=== PATIENT | male | born 1965 | race Caucasian/White ===

== ENCOUNTER 2017-06-25 15:12 | Emergency (ER) | payer OTHER ==
[~2017-06-25] VITALS: Ht 162.6 cm; Wt 65.8 kg
[2017-06-25] MEDS ORDERED: PAXIL PO (15:27)
[2017-06-25] MEDS ORDERED: OMEP40CA37 PO (15:27)
[2017-06-25] MEDS ORDERED: OLAN20TA3 PO (15:27)
[2017-06-25 15:42] LABS: *BILIRUBIN,URIN NEGATIVE (NEGATIVE); *BLOOD, URINE NEGATIVE (NEGATIVE); *CLARITY,URINE CLEAR (CLEAR); *COLOR,URINE YELLOW (YELLOW); *KETONES,URINE NEGATIVE (NEGATIVE); *PROTEIN,URINE NEGATIVE (NEGATIVE); *UROBILINOGEN,URINE 0.2 E.U./dl (NORMAL); LEUKOCYTE ESTERASE ,URINE NEGATIVE (NEGATIVE); NITRITE, URINE NEGATIVE (NEGATIVE); UGLUCOSE NEGATIVE (NEGATIVE)
[2017-06-25 15:47] LABS: BASOPHILS # (AUTO) 0.1 K/uL (0.0-8.0); BASOPHILS % (AUTO) 1.1 % (0.0-2.0); EOSINOPHILS # (AUTO) 0.1 K/uL (0.0-0.7); HEMATOCRIT 41.5 % (40-50); HEMOGLOBIN 14.2 G/DL (14.0-18.0); LYMPHOCYTES % (AUTO) 28.4 % (20.5-51.5); MEAN CORPUSCULAR HEMOGLOBIN 32.9 UUG (27.0-31.0); MEAN CORPUSCULAR HGB CONC 34 g/dL (32.0-37.0); MEAN CORPUSCULAR VOLUME 96.3 FL (82.0-92.0); MONOCYTES # (AUTO) 0.5 K/UL (0.1-1.30); MONOCYTES % (AUTO) 7.2 % (0.0-11.0); NEUTROPHILS # (AUTO) 4.4 K/UL (1.8-8.9); NEUTROPHILS % (AUTO) 61.3 % (38.5-71.5); PLATELET COUNT (AUTO) 264 K/UL (150-450); RED BLOOD CELL COUNT(AUTO) 4.31 MIL/UL (4.7-6.1); WHITE BLOOD COUNT (AUTO) 7.1 K/UL (4.0-11.2)
[2017-06-25 15:47] LABS: BACTERIA,URINE NONE SEEN /HPF (NONE SEEN); RBC,URINE NONE SEEN /HPF (0-3); WBC,URINE 0-3 /HPF (0-3)
[2017-06-25 15:48] LABS: SQUAMOUS EPITHELIAL CELL,UR FEW /HPF (NONE SEEN)
[2017-06-25 15:54] LABS: CARBON DIOXIDE 29 mmol/L (21-32); CHLORIDE 101 mmol/L (98-107); CREATININE 1.1 mg/dL (0.6-1.3); GLUCOSE 131 mg/dL (74-106); POTASSIUM 3.4 mmol/L (3.5-5.1); UREA NITROGEN, BLOOD 16 mg/dL (7-18)
[2017-06-25 15:56] LABS: *AMPHETAMINE, URINE POSITIVE (NEGATIVE); *BARBITURATE, URINE NEGATIVE (NEGATIVE); *CANNABINOID, URINE POSITIVE (NEGATIVE); *COCCAINE, URINE NEGATIVE (NEGATIVE); *OPIATE, URINE NEGATIVE (NEGATIVE); *PHENCYCLIDINE SCREEN,URINE NEGATIVE (NEGATIVE)
[2017-06-25 16:07] LABS: ETHANOL < 3 MG/DL (0-0)
[2017-06-25 16:10] LABS: ALANINE AMINOTRANSFERASE 39 U/L (16-63); ALKALINE PHOSPHATASE 60 U/L (50-136); ASPARTATE AMINOTRANSFERASE 17 U/L (15-37); BILIRUBIN,DIRECT 0.1 mg/dL (0.0-0.2); BILIRUBIN,TOTAL 0.3 mg/dL (0.2-1.0)
[2017-06-25 16:11] LABS: THYROID STIMULATING HORMONE 1.896 mIU/mL (0.358-3.740)
--- NOTE | 2017-06-25 16:12 | NUR ---
Pt resting with NAD noted. Called Lincoln Ellis for psych eval, eat 30 mins.
--- NOTE | 2017-06-25 16:32 | NUR ---
Per Dr. Cooper patient is medically clear.
--- NOTE | 2017-06-25 16:35 | NUR ---
Lincoln Ellis here for psych eval.
--- NOTE | 2017-06-25 17:52 | NUR ---
Pt eating dinner with NAD noted, awaiting call back from [facility].
--- NOTE | 2017-06-25 18:25 | NUR ---
Received telephone call from New from [facility] who stated they have accepted the pt (voluntary admission ), Dr. Rodrigez accepting. Per New pt may be transported by taxi as he is a voluntary admission and report to be called to [phone].
--- NOTE | 2017-06-25 18:30 | NUR ---
SBAR report given to Elli at [facility] via telephone ).
--- NOTE | 2017-06-25 18:34 | NUR ---
Received telephone call from New who stated Dr. Gutierrez is the accepting physician.
--- NOTE | 2017-06-25 18:46 | NUR ---
Patient discharged in stable conditon. Written and verbal after care instructions given. Patient verbalizes understanding of instructions. Taxi (with voucher) provided for transport to [id number] [facility]. [id number].
== END 2017-06-25 18:50 | disposition home or self-care (01) ==
LOC: ER 15:12
DX: F31.9 Bipolar disorder, unspecified (principal); K21.9 Gastro-esophageal reflux disease without esophagitis; F15.10 Other stimulant abuse, uncomplicated; Z59.0 Homelessness
CPT/HCPCS: 36415; 71010; 80307; 84443; 85025; 93005; A4663; G0480

== ENCOUNTER 2017-10-22 07:55 | Emergency (ER) | payer OTHER ==
[~2017-10-22] VITALS: Ht 162.6 cm; Wt 63.5 kg
[~2017-10-22 07:55] MED LIST: OLAN20TA3 PO; OMEP40CA37 PO; PAXIL PO
[2017-10-22] MEDS ORDERED: MAG HYDROX/AL HYDROX/SIMETH 30 ML LIQUID UDC PO ONE (08:15)
[2017-10-22] MEDS ORDERED: DICYCLOMINE HCL 10 MG/5 ML UDC LIQ PO ONE (08:15)
[2017-10-22] MEDS ORDERED: DICYCLOMINE HCL 10 MG/5 ML UDC LIQ ONE (08:19)
[2017-10-22] MEDS ORDERED: MAG HYDROX/AL HYDROX/SIMETH 30 ML LIQUID UDC ONE (08:19)
--- NOTE | 2017-10-22 08:21 | NUR ---
mse completed, pt d/c'd home,aci rx x4 given. pt ambulated w/o diff,took all belongings.
[2017-10-22 08:22] VITALS: BP 141/89
== END 2017-10-22 08:22 | disposition home or self-care (01) ==
LOC: ER 07:56
DX: Z76.0 Encounter for issue of repeat prescription (principal); K21.9 Gastro-esophageal reflux disease without esophagitis; Z79.899 Other long term (current) drug therapy; Z59.0 Homelessness
CPT/HCPCS: A4663

== ENCOUNTER 2017-11-09 18:07 | Emergency (ER) | payer OTHER ==
[~2017-11-09] VITALS: Ht 162.6 cm; Wt 63.5 kg
--- NOTE | 2017-11-09 19:06 | NUR ---
Report given to Brennon LAZCANO, I relinquish care of pt at this time.
[2017-11-09 19:09] LABS: *BILIRUBIN,URIN NEGATIVE (NEGATIVE); *BLOOD, URINE NEGATIVE (NEGATIVE); *CLARITY,URINE CLEAR (CLEAR); *COLOR,URINE YELLOW (YELLOW); *KETONES,URINE NEGATIVE (NEGATIVE); *PROTEIN,URINE NEGATIVE (NEGATIVE); *UROBILINOGEN,URINE 0.2 E.U./dl (NORMAL); BASOPHILS # (AUTO) 0.1 K/uL (0.0-8.0); BASOPHILS % (AUTO) 0.6 % (0.0-2.0); EOSINOPHILS # (AUTO) 0.2 K/uL (0.0-0.7); EOSINOPHILS % (AUTO) 2.1 % (0.0-7.0); HEMATOCRIT 36.6 % (36.7-47.1); HEMOGLOBIN 12.8 g/dL (12.5-16.3); LEUKOCYTE ESTERASE ,URINE NEGATIVE (NEGATIVE); LYMPHOCYTES # (AUTO) 2.4 K/uL (20.0-40.0); MEAN CORPUSCULAR HEMOGLOBIN 33.8 uug (23.8-33.4); MEAN CORPUSCULAR HGB CONC 35 g/dL (32.5-36.3); MEAN CORPUSCULAR VOLUME 96.8 fL (73.0-96.2); MONOCYTES # (AUTO) 0.7 K/uL (2.0-10.0); MONOCYTES % (AUTO) 8.1 % (0.0-11.0); NEUTROPHILS % (AUTO) 60.2 % (38.5-71.5); NITRITE, URINE NEGATIVE (NEGATIVE); PH,URINE 6.5 (5.0-8.0); PLATELET COUNT (AUTO) 227 K/uL (152-348); RED BLOOD CELL COUNT(AUTO) 3.79 MIL/uL (4.06-5.63); UGLUCOSE NEGATIVE (NEGATIVE); WHITE BLOOD COUNT (AUTO) 8.3 K/uL (3.6-10.2)
[2017-11-09 19:21] LABS: ETHANOL < 3 MG/DL (0-0)
[2017-11-09 19:30] LABS: BACTERIA,URINE NONE SEEN /HPF (NONE SEEN); RBC,URINE 0-3 /HPF (0-3); SQUAMOUS EPITHELIAL CELL,UR NONE SEEN /HPF (NONE SEEN); WBC,URINE 0-3 /HPF (0-3)
--- NOTE | 2017-11-09 19:35 | NUR ---
CALLED JANY LEVY LCSW, FOR PSYCH EVAL. ETA 1 HR
[2017-11-09 19:38] LABS: *AMPHETAMINE, URINE NEGATIVE (NEGATIVE); *BARBITURATE, URINE NEGATIVE (NEGATIVE); *CANNABINOID, URINE POSITIVE (NEGATIVE); *COCCAINE, URINE NEGATIVE (NEGATIVE); *OPIATE, URINE NEGATIVE (NEGATIVE); *PHENCYCLIDINE SCREEN,URINE NEGATIVE (NEGATIVE)
[2017-11-09] MEDS ORDERED: LORAZEPAM 0.5 MG TABLET PO ONE (19:45)
[2017-11-09] MEDS ORDERED: LORAZEPAM 1 MG TABLET ONE (19:53)
[2017-11-09 19:57] LABS: CARBON DIOXIDE 26 mmol/L (21-32); CHLORIDE 104 mmol/L (98-107); GLUCOSE 93 mg/dL (74-106); POTASSIUM 3.7 mmol/L (3.5-5.1); UREA NITROGEN, BLOOD 11 mg/dL (7-18)
[2017-11-09 20:02] LABS: ALANINE AMINOTRANSFERASE 50 U/L (16-63); ALKALINE PHOSPHATASE 58 U/L (50-136); ASPARTATE AMINOTRANSFERASE 18 U/L (15-37); BILIRUBIN,DIRECT 0.1 mg/dL (0.0-0.2); BILIRUBIN,TOTAL 0.2 mg/dL (0.2-1.0)
[2017-11-09 20:03] LABS: ACETAMINOPHEN < 2.0 ug/mL (10-30)
--- NOTE | 2017-11-09 21:00 | NUR ---
JANY LEVY AT BEDSIDE FOR EVAL.
--- NOTE | 2017-11-10 00:38 | NUR ---
RECEIVED CALL FROM JOSE AT [facility]. ACCORDING TO JOSE, PATIENT IS NOT ON HOLD AND DOES NOT MEET CRITERIA FOR ADMISSION. DR. COLUNGA NOTIFIED.
--- NOTE | 2017-11-10 03:00 | NUR ---
PT REFUSES TO BE DISCHARGED. PT STATES HE WANTS TO HURT HIMSELF BY CUTTING HIS WRISTS. DR. COLUNGA MADE AWARE. WILL CALL JANY LEVY FOR ANOTHER PSYCH EVAL.
--- NOTE | 2017-11-10 06:49 | NUR ---
CALLED JANY LEVY LCSW, FOR ANOTHER PSYCH EVAL. ETA - 1.5 HRS
--- NOTE | 2017-11-10 07:18 | NUR ---
GAVE REPORT TO ZEHRA LAZCANO
--- NOTE | 2017-11-10 07:24 | NUR ---
PATIENT AMBULATED TO BATHROOM AND WAS ABLE TO VOID URINE. HE STATES HE WILL "SLASH HIS WRISTS" IF HE GETS DISCHARGED AND WANTS TO BE ADMITTED TO A FACILITY. [facility] WAS JUST INFORMED OF THIS VIA PHONE BY CYNDI LAZCANO. PATIENT IS TO BE ADMITTED TO [facility]. WE ARE MAKING ARRANGEMENTS FOR THIS TRANSFER NOW.
--- NOTE | 2017-11-10 07:24 | NUR ---
TALKED TO JANY LEVY. HE SAYS [facility] WILL ACCEPT THE PT BC PT EXPRESSED SUICIDAL IDEATION BY CUTTING WRISTS. HAVE TO FAX OVER THE PAPERWORK TO [phone].
--- NOTE | 2017-11-10 08:09 | NUR ---
I RECEIVED A CALL ROM [facility] IN [place] THAT DR FLORES WILL BE ACCEPTING THIS PATIENT AT THAT FACILITY. I WILL CALL AND GIVE REPORT. PATIENT IS RESTING COMFORTABLE IN ROOM 2.
--- NOTE | 2017-11-10 08:33 | NUR ---
REPORT GIVEN TO ALFONZO LAZCANO AT [facility] AT [phone]. I CALLED FOR TRANSPORTATION ALSO. PATIENT IS AWARE OF PENDING TRANSFER.
--- NOTE | 2017-11-10 09:21 | NUR ---
AWAITING AMBULANCE ARRIVAL. PATIENT IS AMBULATORY WITH STEADY GAIT. HE DRANK SOME COFFEE.
--- NOTE | 2017-11-10 09:30 | NUR ---
"[facility]" STAFF HERE TO TRANSPORT PATIENT TO FACILITY. PATIENT IS AWAKE AND ALERT WITH NO COMPLAINTS. HE REFUSED BREAKFAST BUT HAD COFFEE.
== END 2017-11-10 09:32 | disposition short-term general hospital (02) ==
LOC: ER 18:07
DX: F31.9 Bipolar disorder, unspecified (principal); K21.9 Gastro-esophageal reflux disease without esophagitis; Z59.0 Homelessness; Z79.899 Other long term (current) drug therapy
CPT/HCPCS: 36415; 80307; 85025; A4663; G0480; G0480-TC

== ENCOUNTER 2017-11-29 07:58 | Emergency (ER) | payer OTHER ==
[~2017-11-29] VITALS: Ht 162.6 cm; Wt 64.9 kg
--- NOTE | 2017-11-29 09:01 | NUR ---
PT PREVIOUSLY STATED HE WANTED TO WAIT IN THE WAITING ROOM, AND TO CALL HIM WHEN DOCTOR IS READY TO SEE HIM. PT NOT IN THE WAITING ROOM AT THIS TIME.
--- NOTE | 2017-11-29 09:23 | NUR ---
checked again pt not in the waiting room or outside.
--- NOTE | 2017-11-29 09:24 | NUR ---
PT STILL NOT IN WAITING ROOM.LWBS.
== END 2017-11-29 09:24 | disposition left against medical advice (07) ==
LOC: ER 07:58
DX: Z53.21 Procedure and treatment not carried out due to patient leaving prior to being seen by health care provider (principal)
CPT/HCPCS: A4663

== ENCOUNTER 2017-11-29 19:11 | Emergency (ER) | payer OTHER ==
--- NOTE | 2017-11-29 19:58 | NUR ---
CALLED FOR PT NO ANSWER
--- NOTE | 2017-11-29 20:30 | NUR ---
CALLED FOR PT NO ANSWER.
--- NOTE | 2017-11-29 21:00 | NUR ---
CALLED FOR PT NO ANSWER LWBT
== END 2017-11-29 21:00 | disposition left against medical advice (07) ==
LOC: ER 19:14
DX: Z53.21 Procedure and treatment not carried out due to patient leaving prior to being seen by health care provider (principal)

== ENCOUNTER 2017-12-06 13:52 | Emergency (ER) | payer OTHER ==
[~2017-12-06] VITALS: Ht 162.6 cm; Wt 64.9 kg
--- NOTE | 2017-12-06 15:27 | NUR ---
PT NOT IN WAITINX RM X 3.
[2017-12-06 15:48] LABS: BASOPHILS % (AUTO) 0.7 % (0.0-2.0); EOSINOPHILS # (AUTO) 0.1 K/uL (0.0-0.7); HEMATOCRIT 46.1 % (36.7-47.1); HEMOGLOBIN 16.2 g/dL (12.5-16.3); LYMPHOCYTES # (AUTO) 1.9 K/uL (20.0-40.0); MEAN CORPUSCULAR HEMOGLOBIN 34.2 uug (23.8-33.4); MEAN CORPUSCULAR HGB CONC 35 g/dL (32.5-36.3); MEAN CORPUSCULAR VOLUME 97.2 fL (73.0-96.2); MONOCYTES # (AUTO) 0.4 K/uL (2.0-10.0); MONOCYTES % (AUTO) 6.9 % (0.0-11.0); NEUTROPHILS # (AUTO) 3.9 K/uL (1.8-8.9); NEUTROPHILS % (AUTO) 61.4 % (38.5-71.5); PLATELET COUNT (AUTO) 222 K/uL (152-348); RED BLOOD CELL COUNT(AUTO) 4.74 MIL/uL (4.06-5.63); WHITE BLOOD COUNT (AUTO) 6.4 K/uL (3.6-10.2)
[2017-12-06 15:53] LABS: *BILIRUBIN,URIN NEGATIVE (NEGATIVE); *BLOOD, URINE NEGATIVE (NEGATIVE); *CLARITY,URINE CLEAR (CLEAR); *COLOR,URINE YELLOW (YELLOW); *KETONES,URINE NEGATIVE (NEGATIVE); *PROTEIN,URINE NEGATIVE (NEGATIVE); *UROBILINOGEN,URINE 0.2 E.U./dl (NORMAL); LEUKOCYTE ESTERASE ,URINE NEGATIVE (NEGATIVE); NITRITE, URINE NEGATIVE (NEGATIVE); UGLUCOSE NEGATIVE (NEGATIVE)
[2017-12-06 15:57] LABS: CARBON DIOXIDE 29 mmol/L (21-32); CHLORIDE 102 mmol/L (98-107); CREATININE 1.1 mg/dL (0.6-1.3); GLUCOSE 97 mg/dL (74-106); POTASSIUM 4.1 mmol/L (3.5-5.1); UREA NITROGEN, BLOOD 12 mg/dL (7-18)
[2017-12-06 16:04] LABS: WBC,URINE 0-3 /HPF (0-3)
[2017-12-06 16:07] LABS: *AMPHETAMINE, URINE NEGATIVE (NEGATIVE); *BARBITURATE, URINE NEGATIVE (NEGATIVE); *CANNABINOID, URINE POSITIVE (NEGATIVE); *COCCAINE, URINE NEGATIVE (NEGATIVE); *OPIATE, URINE NEGATIVE (NEGATIVE); *PHENCYCLIDINE SCREEN,URINE NEGATIVE (NEGATIVE)
[2017-12-06 16:07] LABS: ETHANOL < 3 MG/DL (0-0)
[2017-12-06 16:10] LABS: ALANINE AMINOTRANSFERASE 69 U/L (16-63); ALKALINE PHOSPHATASE 68 U/L (50-136); ASPARTATE AMINOTRANSFERASE 26 U/L (15-37); BILIRUBIN,DIRECT 0.1 mg/dL (0.0-0.2); BILIRUBIN,TOTAL 0.4 mg/dL (0.2-1.0); TOTAL PROTEIN, SERUM 8.2 g/dL (6.4-8.2)
[2017-12-06 16:13] LABS: ACETAMINOPHEN < 2.0 ug/mL (10-30)
--- NOTE | 2017-12-06 17:15 | NUR ---
Pt sitting in gurney and eating dinner, RADHA noted.
--- NOTE | 2017-12-06 18:00 | NUR ---
Pinky at bedside for psych eval.
--- NOTE | 2017-12-06 19:28 | NUR ---
Aminta Carbajal LCSW to call back for confirmation from [facility] prior to proceeding with transfer.
--- NOTE | 2017-12-06 19:30 | NUR ---
Pt lying in bed, no acute signs of distress.
--- NOTE | 2017-12-06 20:37 | NUR ---
Pt in room sleeping, no acute signs of distress.
--- NOTE | 2017-12-06 21:30 | NUR ---
Called Aminta Marie RN, states didn't receive call from receiving hospital yet.
--- NOTE | 2017-12-06 22:22 | NUR ---
Gave [place] [address] Hayward accepting psychiatrist. Patient to go to Room 616B.
--- NOTE | 2017-12-06 22:29 | NUR ---
Spoke with August Campos to arrange transportation of patient from [facility] to [facility]. States will call in 1 hour.
--- NOTE | 2017-12-06 22:32 | NUR ---
Andres from [facility] gave trip # [id number], ETA for ambulance in 1 hour to 1.5 hours.
--- NOTE | 2017-12-06 23:20 | NUR ---
August Johnson arrived to transport patient from [facility] to [facility]. Report and documentation given to EMT.
--- NOTE | 2017-12-06 23:29 | NUR ---
Patient out of ER via [facility]. To be transported to [facility].
== END 2017-12-06 23:31 | disposition short-term general hospital (02) ==
LOC: ER 13:54
DX: F31.9 Bipolar disorder, unspecified (principal); Z59.0 Homelessness
CPT/HCPCS: 36415; 80048; 80076; 80307; 81001; 85025; 99285; A4663; G0480 ×2; G0481

== ENCOUNTER 2021-04-11 10:47 | Inpatient (IN) | payer OTHER ==
[~2021-04-11] VITALS: Ht 165.1 cm; Wt 65.8 kg
[~2021-04-11 10:47] MED LIST changes: +OMEP40CA21 PO; -OMEP40CA37 PO
[2021-04-11] MEDS ORDERED: IV NORMAL SALINE 1000 ML BAG IV ONE (11:00)
[2021-04-11] MEDS ORDERED: MORPHINE SULFATE 4 MG/1 ML DISP.SYRIN IV ONE (11:00)
[2021-04-11 11:21] LABS: HEMATOCRIT 35.6 % (36.7-47.1); MEAN CORPUSCULAR VOLUME 96.9 fL (73.0-96.2); PLATELET COUNT (AUTO) 257 K/uL (152-348)
[2021-04-11 11:24] LABS: POTASSIUM 3.4 mmol/L (3.5-5.1)
[2021-04-11 11:30] LABS: BILIRUBIN,DIRECT 0.1 mg/dL (0.0-0.2); BILIRUBIN,TOTAL 0.4 mg/dL (0.2-1.0); TOTAL PROTEIN, SERUM 7.7 g/dL (6.4-8.2)
[2021-04-11] MEDS ORDERED: VANCOMYCIN IV 1,000 MG in IV DEXTROSE 5% 250 ML IV ONE (11:45)
[2021-04-11] MEDS ORDERED: MORPHINE SULFATE 4 MG/1 ML DISP.SYRIN ONE (11:56)
[2021-04-11] MEDS ORDERED: PIPERACILLIN/TAZOBACTAM/D5W 50 ML IV ONE ×2 (11:56→20:21)
[2021-04-11] MEDS ORDERED: VANCOMYCIN IV 200 ML ONE (11:57)
[2021-04-11] MEDS: PIPERACILLIN SODIUM/TAZOBACTAM 3.375 G in IV DEXTROSE 5% 50 ML IV SCH ×2 (12:17→20:20)
[2021-04-11] MEDS ORDERED: KETOROLAC TROMETHAMINE 15 MG INJ IVP ONE (12:45)
--- NOTE | 2021-04-11 15:45 | NUR ---
Bandaged wound w/non-adhering dressing and Kerlix. Pt resting in bed, no complaints currently, no distress.
--- NOTE | 2021-04-11 16:31 | NUR ---
Left message for Dr. Kay at [facility].
--- NOTE | 2021-04-11 17:05 | NUR ---
L/M for Dr Eliza kuo
--- NOTE | 2021-04-11 18:09 | NUR ---
Per Gloria (bed coordinator), Dr Kay has accepted the patient at [facility]. They will call back when a bed assignment opens up. Dr. Monk spoke with Dr. Kay to verify.
--- NOTE | 2021-04-11 18:44 | NUR ---
Gave pt dinner tray, pt not very hungry.
[2021-04-11 18:47] LABS: *BILIRUBIN,URIN NEGATIVE (NEGATIVE); *BLOOD, URINE NEGATIVE (NEGATIVE); *CLARITY,URINE CLEAR (CLEAR); *COLOR,URINE YELLOW (YELLOW); *KETONES,URINE NEGATIVE (NEGATIVE); LEUKOCYTE ESTERASE ,URINE NEGATIVE (NEGATIVE); NITRITE, URINE NEGATIVE (NEGATIVE); PH,URINE 6.5 (5.0-8.0); UGLUCOSE NEGATIVE (NEGATIVE)
[2021-04-11 18:52] LABS: BACTERIA,URINE FEW /HPF (NONE SEEN); RBC,URINE 0-3 /HPF (0-3); SQUAMOUS EPITHELIAL CELL,UR FEW /HPF (NONE SEEN)
[2021-04-11 18:58] LABS: *AMPHETAMINE, URINE POSITIVE (NEGATIVE); *CANNABINOID, URINE POSITIVE (NEGATIVE); *COCCAINE, URINE NEGATIVE (NEGATIVE); *OPIATE, URINE POSITIVE (NEGATIVE); *PHENCYCLIDINE SCREEN,URINE NEGATIVE (NEGATIVE)
--- NOTE | 2021-04-11 20:08 | NUR ---
recieved report from NENO Urbano. Pt currently sleeping. Pending call from [facility] on when pt. has a bed.
--- NOTE | 2021-04-11 20:30 | NUR ---
Pt resting in bed sleeping. Denies any discomfort. Will continue to monitor.
--- NOTE | 2021-04-11 21:04 | NUR ---
Called Gloria, bed coordinator for [facility], for update on pt. bed placement. Left a message. Will continue to follow up.
--- NOTE | 2021-04-11 22:24 | NUR ---
CALLED BED CORDINATOR OF [facility] FOR FOLLOW UP, LEFT MESSAGE.
--- NOTE | 2021-04-11 23:04 | NUR ---
Called Gloria, bed coordinator for [facility], for update on pt. bed placement. Left a message. Will continue to follow up.
--- NOTE | 2021-04-11 23:16 | NUR ---
Called [facility], spoke with Loni (Senior Support Engineer). Per Loni there are no beds and they are currently impacted and will not have a bed for the patient until tomorrow.
[2021-04-11] MEDS ORDERED: VANCOMYCIN 1G/D5W 200 ML PIGGYBACK IV ONE (23:45)
--- NOTE | 2021-04-11 23:47 | NUR ---
spoke with Veronica, the on-call immigration case manager for [facility]. They requested we follow up at 3am.
[2021-04-12] MEDS ORDERED: VANCOMYCIN 1000 MG VIAL ONE (00:02)
--- NOTE | 2021-04-12 03:36 | NUR ---
Spoke with Lidya (manager of selection and assessment at [facility]) regarding pt, no beds available. Will continue to follow up.
[2021-04-12] MEDS: PIPERACILLIN SODIUM/TAZOBACTAM 3.375 G in IV DEXTROSE 5% 50 ML IV SCH ×3 (03:56→15:57)
[2021-04-12] MEDS ORDERED: PIPERACILLIN/TAZOBACTAM/D5W 50 ML IV ONE ×2 (03:56→09:59)
--- NOTE | 2021-04-12 06:40 | NUR ---
Pt sleeping. Easily arousable, denies any discomfort. No new symptoms. NAD. VSS. Will continue to monitor.
--- NOTE | 2021-04-12 07:30 | NUR ---
Received patient in shift report from Myla
--- NOTE | 2021-04-12 08:56 | NUR ---
Patient noted resting in bed, no changes noted
--- NOTE | 2021-04-12 09:08 | NUR ---
Patient noted resting at this time
--- NOTE | 2021-04-12 09:15 | NUR ---
[facility] case filler called , message left, awaiting returned call
[2021-04-12] MEDS ORDERED: VANCOMYCIN IV 1,000 MG in IV DEXTROSE 5% 250 ML IV ONE (11:15)
[2021-04-12] MEDS ORDERED: MORPHINE SULFATE 2 MG/1 ML DISP.SYRIN IV ONE (11:15)
[2021-04-12] MEDS ORDERED: LORAZEPAM 2 MG/1 ML VIAL IV ONE (12:30)
[2021-04-12] MEDS ORDERED: HALOPERIDOL LACTATE 5 MG/1 ML VIAL IV ONE (12:30)
[2021-04-12] MEDS ORDERED: HALOPERIDOL LACTATE 5 MG/1 ML VIAL ONE (12:50)
[2021-04-12] MEDS ORDERED: LORAZEPAM 2 MG/1 ML VIAL ONE (12:50)
[2021-04-12] MEDS ORDERED: MORPHINE SULFATE 4 MG/1 ML DISP.SYRIN ONE (12:53)
[2021-04-12] MEDS ORDERED: VANCOMYCIN IV 200 ML ONE ×2 (12:59→22:28)
[2021-04-12 13:27] LABS: CREATININE 0.9 mg/dL (0.6-1.3); POTASSIUM 3.8 mmol/L (3.5-5.1)
--- NOTE | 2021-04-12 13:59 | NUR ---
[facility] NOTIFIED [facility] ER, THEY DO NOT HAVE BEDS AVAILABLE, PT CAN BE ADMITED TO [facility]. DR RIVERA TALKED TO [facility] SIMONE, SHE CONFIRMED THAT PT CAN BE ADMITTED TO [facility] .
[2021-04-12 14:23] LABS: MEAN CORPUSCULAR HEMOGLOBIN 33.7 uug (23.8-33.4); MEAN CORPUSCULAR VOLUME 97.4 fL (73.0-96.2); PLATELET COUNT (AUTO) 188 K/uL (152-348)
[2021-04-12] MEDS ORDERED: PAROXETINE HCL 10 MG TABLET PO SCH (16:00)
[2021-04-12] MEDS ORDERED: MORPHINE SULFATE 2 MG/1 ML DISP.SYRIN IV PRN (17:00)
[2021-04-12] MEDS ORDERED: MAGNESIUM HYDROXIDE 30 ML LIQUID UDC PO PRN (17:00)
[2021-04-12] MEDS ORDERED: ONDANSETRON 4 MG/2 ML VIAL IV PRN (17:00)
[2021-04-12] MEDS ORDERED: ENOXAPARIN SODIUM 40 MG/0.4 ML DISP.SYRIN SQ ONE ×2 (17:00→17:10)
[2021-04-12] MEDS ORDERED: ENOXAPARIN SODIUM 40 MG/0.4 ML DISP.SYRIN SQ SCH (17:00)
[2021-04-12] MEDS ORDERED: Z GUARD REMEDY PASTE 57 GM TUBE TOP PRN (17:00)
[2021-04-12] MEDS ORDERED: IV 1/2NS 1000 ML 1,000 ML IV PRN (17:00)
[2021-04-12] MEDS ORDERED: ACETAMINOPHEN 325 MG TABLET PO PRN (17:00)
[2021-04-12] MEDS ORDERED: ZOLPIDEM 5 MG TABLET PO PRN (17:00)
[2021-04-12] MEDS ORDERED: HYDROCODONE/APAP 5-325MG TABLET PO PRN (17:00)
--- NOTE | 2021-04-12 21:45 | NUR ---
RECEIVED PATIENT VIA GURNEY FROM ER. VSS. A/O X4. PLACED ON TELE SR. CALL LIGHT IN REACH. ALL NEEDS ATTENDED. WILL CONTINUE TO MONITOR AND ASSESS.
[2021-04-12 22:13] VITALS: BP 127/77
[2021-04-12] MEDS ORDERED: PIPERACILLIN/TAZOBACTAM/D5W 100 ML IV ONE (22:23)
[2021-04-12] MEDS ORDERED: VANCOMYCIN IV 1,000 MG in IV DEXTROSE 5% 250 ML IV SCH (23:00)
[2021-04-13] MEDS ORDERED: PIPERACILLIN SODIUM/TAZOBACTAM 3.375 G in IV DEXTROSE 5% 50 ML IV SCH
[2021-04-13 04:52] VITALS: BP 117/73
[2021-04-13 05:46] LABS: HEMATOCRIT 32.2 % (36.7-47.1); MEAN CORPUSCULAR VOLUME 96.9 fL (73.0-96.2); PLATELET COUNT (AUTO) 274 K/uL (152-348)
[2021-04-13 06:00] LABS: CREATININE 1.1 mg/dL (0.6-1.3); MAGNESIUM 1.9 mg/dL (1.8-2.4); POTASSIUM 3.1 mmol/L (3.5-5.1)
--- NOTE | 2021-04-13 06:38 | NUR ---
PATIENT ASLEEP IN BED. ON TELE SR. VS WNL. IVF INFUSING WELL TO RIGHT AC. CALL LIGHT IN REACH. ALL NEEDS ATTENDED. WILL CONTINUE TO MONITOR AND ASSESS.
--- NOTE | 2021-04-13 06:55 | NUR ---
PATIENT AWAKE IN BED. REFUSING TELE.
--- NOTE | 2021-04-13 07:30 | NUR ---
Patient received in bed with eyes closed, but easily arousable. Continues to refuse telemetry. Right AC IV patent running IVF at 75 mL/h as ordered with no redness or swelling. Left lower extremity dressing C/D/I. On RA with no SOB or difficulties breathing. Call light and personal belongings within easy reach. Will continue to monitor.
--- NOTE | 2021-04-13 08:00 | NUR ---
Patient was found in room smoking a cigarette. Security called and remained at bedside for safety. Patient refused to give up cigarette and general house worker in his hand. Nicotine patch offered, but patient refused. States that he isn't supposed to be here and should be at a facility in [place]. He states he needs to leave. Educated patient on importance of continuing medical care and regarding AMA, but patient adamant about leaving. AMA formed signed. All personal belongings checked and belongings list signed. Patient left AMA in personal wheelchair.
[2021-04-13] MEDS ORDERED: ENOXAPARIN SODIUM 40 MG/0.4 ML DISP.SYRIN SQ SCH (09:00)
[2021-04-13] MEDS ORDERED: OLANZAPINE 5 MG TABLET PO SCH (15:30)
== END 2021-04-13 08:10 | disposition left against medical advice (07) | DRG 721 ==
LOC: ER 10:48 → TRANSITION 04-12 16:57 → MEDSURG3 04-12 21:35 → TELE3 04-12 21:40
PROVIDERS: ADMIT Nurse Practitioner Family; ATTEND Nurse Practitioner Family
DX: T81.40XA Infection following a procedure, unspecified, initial encounter (principal); R65.20 Severe sepsis without septic shock; E87.2 Acidosis; T81.44XA Sepsis following a procedure, initial encounter; E44.0 Moderate protein-calorie malnutrition; E87.1 Hypo-osmolality and hyponatremia; E87.6 Hypokalemia; F17.210 Nicotine dependence, cigarettes, uncomplicated; F32.9 Major depressive disorder, single episode, unspecified; K21.9 Gastro-esophageal reflux disease without esophagitis; Z59.0 Homelessness; E88.09 Other disorders of plasma-protein metabolism, not elsewhere classified; Z68.24 Body mass index [BMI] 24.0-24.9, adult; Z86.19 Personal history of other infectious and parasitic diseases; F19.10 Other psychoactive substance abuse, uncomplicated; Z71.6 Tobacco abuse counseling; Y83.8 Other surgical procedures as the cause of abnormal reaction of the patient, or of later complication, without mention of misadventure at the time of the procedure; Y79.8 Miscellaneous orthopedic devices associated with adverse incidents, not elsewhere classified; Y92.009 Unspecified place in unspecified non-institutional (private) residence as the place of occurrence of the external cause; Z20.822 Contact with and (suspected) exposure to COVID-19; Z96.652 Presence of left artificial knee joint
CPT/HCPCS: 36415; 70030-TC; 71045; 83605; 83735; 85025; 85730; 87040; 87070; 87077; 87086; 93005; A4663; A6209; G0378; J1630; J1650; J2060; J2270; J2543; J3370; J3490; J7030; J7060